=== PATIENT | female | born 1980 | race Caucasian/White ===

== ENCOUNTER → 2022-01-21 | Day surgery (SDC) | payer OTHER ==
[~2022-01-21] VITALS: Ht 165.1 cm; Wt 80.6 kg
[~2022-01-21] MED LIST: ACETAMINOPHEN 325 MG TAB PO PRN; ACETAMINOPHEN 500 MG TAB PO ONE; B-12100010 PO; BUPIVACAINE HCL 0.25% 30ML VIAL As Ordered ONE; D31000TA2 PO; FLUO1TAB3 PO; GLYCOPYRROLATE INJ 0.2 MG/ML 2 ML VIAL As Ordered ONE; HYDROmorphone HCL 2MG/ML 1ML VIAL As Ordered ONE; KETOROLAC 60MG 2ML VIAL As Ordered ONE; LIDOCAINE 1% MDV 20ML VIAL SQ PRN; LIDOCAINE 2% 100MG/5ML SDV (FOR ANES.) As Ordered ONE; LR 1,000 ML IV ONE; LR 1,000 ML IV SCH; MIDAZOLAM INJ 2MG/2ML VIAL (J2250 PER 1MG) As Ordered ONE; ONDANSETRON 4MG/2ML VIAL As Ordered ONE; ONDANSETRON 4MG/2ML VIAL IV PRN; ROCURONIUM BROMIDE 50 MG/5 ML VIAL As Ordered ONE; SUGAMMADEX SODIUM 500 MG/5 ML VIAL (BRIDION) As Ordered ONE; VITA-243 PO; VITMTA PO; ZINC1TAB2 PO; [UNRECOGNIZED DRUG - OTHER] PO; dexameTHASONE 4 MG/ML 1ML VIAL (J1100 PER 1MG) As Ordered ONE; fentaNYL 100 MCG/2 ML INJECTION As Ordered ONE; fentaNYL 100 MCG/2 ML INJECTION IV PRN; oxyCODONE 5MG TAB PO PRN; propofoL 200 MG/20 ML VIAL As Ordered ONE
[2022-01-21 09:47] LABS: HEMATOCRIT 38.8 % (36.0-47.0); HEMOGLOBIN 12.9 g/dl (12.0-15.5); MEAN CORPUSCULAR HGB CONC 33.2 g/dl (32.0-36.5); MEAN CORPUSCULAR VOLUME 93.3 fl (80.0-96.0); PLATELET COUNT, AUTOMATED 294 10^3/uL (150-450); RED BLOOD COUNT 4.16 10^6/uL (4.00-5.40); WHITE BLOOD COUNT 8.2 10^3/uL (4.0-10.0)
[2022-01-21 14:50] VITALS: BP 133/83
== END | disposition home or self-care (01) ==
LOC: M SDC 08:58
PROVIDERS: ATTEND Obstetrics & Gynecology
DX: Z30.2 Encounter for sterilization (principal)
CPT/HCPCS: 36415; 58661; 81025; 85027; 88302; J1100; J1170; J1885; J2250; J2405; J3010

== ENCOUNTER 2022-10-06 06:20 | Day surgery (SDC) | payer OTHER ==
[~2022-10-06] VITALS: Ht 165.1 cm; Wt 73.5 kg
[~2022-10-06 06:20] MED LIST changes: +ACETAMINOPHEN *IV* 1,000 MG IV ONE; -ACETAMINOPHEN 325 MG TAB PO PRN; -ACETAMINOPHEN 500 MG TAB PO ONE; -BUPIVACAINE HCL 0.25% 30ML VIAL As Ordered ONE; -D31000TA2 PO; -GLYCOPYRROLATE INJ 0.2 MG/ML 2 ML VIAL As Ordered ONE; -HYDROmorphone HCL 2MG/ML 1ML VIAL As Ordered ONE; -KETOROLAC 60MG 2ML VIAL As Ordered ONE; -LIDOCAINE 1% MDV 20ML VIAL SQ PRN; -LIDOCAINE 2% 100MG/5ML SDV (FOR ANES.) As Ordered ONE; -LR 1,000 ML IV ONE; -LR 1,000 ML IV SCH; -MIDAZOLAM INJ 2MG/2ML VIAL (J2250 PER 1MG) As Ordered ONE; -ONDANSETRON 4MG/2ML VIAL As Ordered ONE; -ONDANSETRON 4MG/2ML VIAL IV PRN; -ROCURONIUM BROMIDE 50 MG/5 ML VIAL As Ordered ONE; -SUGAMMADEX SODIUM 500 MG/5 ML VIAL (BRIDION) As Ordered ONE; +VITA100093 PO; +ceFAZolin SOD 2 GM in IV 1 EA IV ONE; -dexameTHASONE 4 MG/ML 1ML VIAL (J1100 PER 1MG) As Ordered ONE; -fentaNYL 100 MCG/2 ML INJECTION As Ordered ONE; -fentaNYL 100 MCG/2 ML INJECTION IV PRN; -oxyCODONE 5MG TAB PO PRN; -propofoL 200 MG/20 ML VIAL As Ordered ONE
[2022-10-06] MEDS ORDERED: DESFLURANE 240 ML INHALANT As Ordered ONE (06:37)
[2022-10-06] MEDS ORDERED: ROCURONIUM BROMIDE 50 MG/5 ML VIAL As Ordered ONE ×2 (06:46→08:55)
[2022-10-06] MEDS ORDERED: propofoL 200 MG/20 ML VIAL As Ordered ONE ×2 (06:46→08:30)
[2022-10-06] MEDS ORDERED: LIDOCAINE 2% 100MG/5ML SDV (FOR ANES.) As Ordered ONE ×2 (06:46→06:48)
[2022-10-06] MEDS ORDERED: MIDAZOLAM INJ 2MG/2ML VIAL (J2250 PER 1MG) As Ordered ONE (06:47)
[2022-10-06] MEDS ORDERED: ONDANSETRON 4MG 2ML VIAL As Ordered ONE (06:47)
[2022-10-06] MEDS ORDERED: dexameTHASONE 4 MG/ML 1ML VIAL (J1100 PER 1MG) As Ordered ONE (06:47)
[2022-10-06] MEDS ORDERED: fentaNYL 100 MCG/2 ML INJECTION As Ordered ONE ×2 (06:47→09:47)
[2022-10-06] MEDS ORDERED: BUPIVACAINE HCL 0.25% 30ML VIAL As Ordered ONE (07:10)
[2022-10-06 07:14] LABS: HEMATOCRIT 38.3 % (36.0-47.0); HEMOGLOBIN 12.3 g/dl (12.0-15.5); MEAN CORPUSCULAR HGB CONC 32.1 g/dl (32.0-36.5); MEAN CORPUSCULAR VOLUME 96.5 fl (80.0-96.0); PLATELET COUNT, AUTOMATED 266 10^3/uL (150-450); RED BLOOD COUNT 3.97 10^6/uL (4.00-5.40); WHITE BLOOD COUNT 8.8 10^3/uL (4.0-10.0)
[2022-10-06] MEDS ORDERED: LR 1,000 ML IV SCH ×2 (07:25→09:40)
[2022-10-06] MEDS ORDERED: SUGAMMADEX SODIUM 500 MG/5 ML VIAL (BRIDION) As Ordered ONE (08:09)
[2022-10-06] MEDS ORDERED: KETOROLAC 60MG 2ML VIAL As Ordered ONE (08:09)
[2022-10-06] MEDS ORDERED: ACETAMINOPHEN 1000MG 100ML IV BTL (OFIRMEV) (J0131 PER 10MG) As Ordered ONE (08:32)
[2022-10-06] MEDS ORDERED: METOCLOPRAMIDE INJ 10MG/2ML VIAL (J2765 PER 1) As Ordered ONE (09:09)
[2022-10-06] MEDS ORDERED: fentaNYL 100 MCG/2 ML INJECTION IV PRN (09:40)
[2022-10-06] MEDS ORDERED: ONDANSETRON 4MG 2ML VIAL IV PRN (09:40)
[2022-10-06] MEDS: oxyCODONE 5MG TAB PO PRN ×2 (10:11→10:57)
[2022-10-06] MEDS: MORPHINE 2 MG/ML 1ML VIAL IV PRN ×2 (10:13→10:48)
[2022-10-06 11:10] VITALS: BP 113/61
== END 2022-10-06 12:03 | disposition home or self-care (01) ==
LOC: M SDC 06:20
PROVIDERS: ATTEND Obstetrics & Gynecology
DX: D25.9 Leiomyoma of uterus, unspecified (principal); N73.6 Female pelvic peritoneal adhesions (postinfective); Z85.41 Personal history of malignant neoplasm of cervix uteri; F41.9 Anxiety disorder, unspecified; Z79.3 Long term (current) use of hormonal contraceptives; Z91.048 Other nonmedicinal substance allergy status
CPT/HCPCS: 36415; 58550; 81025; 85027; 86850; 86900; 86901; 88307; J0131; J0690; J1100; J1885; J2250; J2270; J2405; J2765; J3010